=== PATIENT | female | born 1975 | race African-American/Black ===

== ENCOUNTER 2017-05-15 23:15 | Emergency (ER) | payer OTHER ==
[~2017-05-15] VITALS: Ht 172.7 cm; Wt 132.9 kg
[~2017-05-15 23:15] MED LIST: AMBIEN5 MG PO; AUGMENTIN875 MG PO; NAPROSYN500 MG PO; XANAX0.25 MG PO; ZOFRAN ODT4 MG PO
[2017-05-16 00:48] LABS: HEMATOCRIT 34.3 % (36.0-46.0); MCH 25.2 PG (29.0-34.0); MCHC 30.9 G/DL (30.0-36.0); MCV 81.7 FL (83-99); MEAN PLAT.VOLUME 10.4 uM^3 (9.5-12.4); PLATELET COUNT 337 K/uL (156-360); RBC DIS.WIDTH-CV 15.8 % (11.8-14.6); RBC DIS.WIDTH-SD 46.9 % (39-53); WHITE BLOOD COUNT 7.9 K/uL (4.1-10.2)
[2017-05-16 01:04] LABS: CHLORIDE 107 mEq/L (99-109); SODIUM 141 mEq/L (136-147)
[2017-05-16 01:06] LABS: GLUCOSE 94 mg/dL (70-99)
[2017-05-16 01:07] LABS: ANION GAP 11 MEQ/L (2-14)
[2017-05-16 01:09] LABS: GFR ESTIMATE (CALCULATED) > 59 mL/min/
[2017-05-16 01:10] LABS: UREA NITROGEN (BUN) 12 mg/dL (9-23)
[2017-05-16 01:18] LABS: QUANTITATIVE HCG < 4.0 MIU/ML
[2017-05-16] MEDS ORDERED: MEDROL DOSEPAK4 MG PO (02:13)
[2017-05-16] MEDS ORDERED: BONINE25 MG PO (02:13)
[2017-05-16 02:40] VITALS: BP 168/108
== END 2017-05-16 02:41 | disposition home or self-care (01) ==
LOC: EME 23:15
PROVIDERS: Physician Assistant
DX: R42 Dizziness and giddiness (principal); S80.11XA Contusion of right lower leg, initial encounter; X58.XXXA Exposure to other specified factors, initial encounter; Z86.718 Personal history of other venous thrombosis and embolism; F17.200 Nicotine dependence, unspecified, uncomplicated; Z98.84 Bariatric surgery status
CPT/HCPCS: 70450; 80048; 84702; 85027; 93971; 99281; 99284